=== PATIENT | male | born 1980 | race Caucasian/White ===

== ENCOUNTER 2017-04-19 17:25 | Inpatient (IN) ==
--- NOTE | 2017-04-19 17:59 | ED.PDOC ---
General ED Provider: Dr. OSMAR IRZO Chief Complaint: Abdominal Pain Stated Complaint: Nausea-vomiting and diarrhea. Onset earlier today. Awakened with illness. Ate pasta and duyen sauce last night. 5 episodes diarrhea and several episodes of vomiting. Severe cramping in abdomen Time Seen by Physician: 17:30 Mode of Arrival: Walk-In Information Source: Patient Exam Limitations: No limitations Referred to ED by: Other Nursing and Triage Documentation Reviewed and Agree: Yes Reviewed sepsis parameters & appropriate labs ordered?: Yes System Inflammatory Response Syndrome: Not Applicable Sepsis Protocol: For patient's 13 years and over: Temp is 96.8 and below OR 101 and greater Pulse >90 BPM Resp >20/minute Acutely Altered Mental Status Are patient's symptoms suggestive of a new infection, such as: -Pneumonia -Skin, Soft Tissue -Endocarditis -UTI -Bone, Joint Infection -Implantable Device -Acute Abdominal Infection -Wound Infection -Meningitis -Blood Stream Catheter Infection -Unknown System Inflammatory Response Syndrome: Not Applicable GI Complaint Exam - Vomiting/Diarrhea Complaint/Exam Symptoms Are: Still present Episodes of Vomiting over last 24 Hours: 3 Episodes of Diarrhea Over Last 24 Hours: 5 Initial Severity: Severe Current Severity: Moderate Character of Vomiting: Reports: Bilious Character of Diarrhea: Reports: Watery Aggravating: Reports: Food Alleviating: Reports: None Associated Signs and Symptoms: Reports: Cramping Non-GI Risk Factors: Reports: None Surgical Obstruction Risk Factors: Reports: None Related Surgical History: Reports: None Abdominal Findings: Present: None Kussmaul Respirations Present: No Differential Diagnoses: Dehydration, Viral Gastroenteritis, Bacterial Gastroenteritis Review of Systems - Review Of Systems Constitutional: Reports: No symptoms, Weakness Eyes: Reports: No symptoms Ears, Nose, Mouth, Throat: Reports: No symptoms Respiratory: Reports: No symptoms Cardiac: Reports: No symptoms GI: Reports: No symptoms, Abdominal pain (Cramping), Diarrhea, Nausea, Vomiting : Reports: No symptoms Musculoskeletal: Reports: No symptoms Skin: Reports: No symptoms Neurological: Reports: No symptoms Endocrine: Reports: No symptoms Hematologic/Lymphatic: Reports: No symptoms All Other Systems: Reviewed and Negative Past Medical History - Past Medical History Previously Healthy: Yes Endocrine: Reports: None, DM 2 Cardiovascular: Reports: None, Hypertension Respiratory: Reports: None Hematological: Reports: None Gastrointestinal: Reports: None, GERD Genitourinary: Reports: None Neuro/Psych: Reports: None Musculoskeletal: Reports: None, Gout Cancer: Reports: None - Surgical History General Surgical History: Reports: Unknown - Family History Family History: Reports: Unknown - Social History Smoking Status: Never smoker Hx Substance Use: No (Hx meth in past) Alcohol Screening: None Physical Exam - Physical Exam Appearance: Ill-appearing Ill-appearing: Moderate Pain Distress: Moderate Eyes: DWIGHT, EOMI, Conjunctiva clear ENT: Ears normal, Nose normal, Oropharynx normal Neck: Supple Respiratory: Airway patent, Breath sounds clear, Breath sounds equal Cardiovascular: RRR, Pulses normal, No rub, No murmur GI/: Soft, No masses, No Organomegaly, Tender, Bowel sounds hyperactive Musculoskeletal: Normal strength, ROM intact, No edema Skin: Warm, Dry, Normal color Neurological: Sensation intact, Motor intact, Reflexes intact, Alert, Oriented Psychiatric: Affect appropriate, Mood appropriate Physician Notification - Case Discussed Physician Notified: Discussed with Dr Mosley who agrees to admit patient Time of Notification: 19:20 Critical Care Note - Critical Care Note Total Time (mins): 30 Course - Course Hematology/Chemistry: 04/21/17 05:00 04/21/17 05:00 Orders, Labs, Meds: Lab Review 04/19/17 04/19/17 04/19/17 18:16 18:50 18:50 WBC 18.97 H RBC 7.55 H Hgb 21.5 H* Hct 60.0 H MCV 79.5 L MCH 28.5 MCHC 35.8 H RDW Coeff of Alex 14.6 Plt Count 339 Immature Gran % (Auto) 0.4 Neut % (Auto) 83.8 Lymph % (Auto) 9.7 L [place] % (Auto) 5.0 Eos % (Auto) 0.7 Baso % (Auto) 0.4 Immature Gran # (Auto) 0.1 Neut # (Auto) 15.9 H Lymph # (Auto) 1.8 [place] # (Auto) 1.0 Eos # (Auto) 0.1 Baso # (Auto) 0.1 Sodium 135 L Potassium 5.8 H Chloride 99 Carbon Dioxide 23 Anion Gap 18.8 BUN 23 H Creatinine 1.80 H Estimated GFR (MDRD) 43.00 BUN/Creatinine Ratio 12.77 Glucose 215 H Calcium 11.0 H Magnesium 2.0 Total Bilirubin 0.9 AST 21 ALT 44 Alkaline Phosphatase 95 Total Protein 9.7 H Albumin 4.8 Globulin 4.9 Albumin/Globulin Ratio 0.98 Amylase Lipase Influ A Molecular Assay Negative by naat Influ B Molecular Assay Negative by naat 04/19/17 18:50 WBC RBC Hgb Hct MCV MCH MCHC RDW Coeff of Alex Plt Count Immature Gran % (Auto) Neut % (Auto) Lymph % (Auto) [place] % (Auto) Eos % (Auto) Baso % (Auto) Immature Gran # (Auto) Neut # (Auto) Lymph # (Auto) [place] # (Auto) Eos # (Auto) Baso # (Auto) Sodium Potassium Chloride Carbon Dioxide Anion Gap BUN Creatinine Estimated GFR (MDRD) BUN/Creatinine Ratio Glucose Calcium Magnesium Total Bilirubin AST ALT Alkaline Phosphatase Total Protein Albumin Globulin Albumin/Globulin Ratio Amylase 28 Lipase 38 Influ A Molecular Assay Influ B Molecular Assay Orders Category Date Time Status IV [ED IV/MEDIPORT/POWERPORT] .ONCE EMERGENCY 04/19/17 18:02 Active CBC W/ AUTO DIFF Stat LAB 04/19/17 18:50 Completed CMP [COMPREHENSIVE METABOLIC PANEL] Stat LAB 04/19/17 18:50 Completed FLU A & B MOLECULAR [FLU A/B MOLECULAR] Stat LAB 04/19/17 18:16 Completed MAGNESIUM Stat LAB 04/19/17 18:50 Completed 0.9 % Sodium Chloride [Saline Flush] MEDS 04/19/17 18:03 Discontinued 1 syr IVF PRN PRN Famotidine Inj [Pepcid] MEDS 04/19/17 18:06 Discontinued 20 mg IVP ONCE STA Ondansetron HCl/Pf [Zofran 4 mg/2 ml] MEDS 04/19/17 18:05 Discontinued 4 mg IVP ONCE STA Sodium Chloride 0.9% [Sodium Chloride] 1,000 ml MEDS 04/19/17 18:02 Discontinued IV BOLUS ABDOMEN, SERIES FLAT & UPRIGHT Stat RADS 04/19/17 18:03 Completed CHEST, 2 VIEWS PA & LAT Stat RADS 04/19/17 18:[address] ABDOMEN/PELVIS WO CONTRAST Stat RADS 04/19/17 19:09 Completed Medications Discontinued Medications Generic Name Dose Route Start Last Admin Trade Name Freq PRN Reason Stop Dose Admin Famotidine 20 mg 04/19/17 18:06 04/19/17 18:38 Pepcid IVP 04/19/17 18:07 20 mg ONCE STA Administration Sodium Chloride 1,000 mls @ 1,000 mls/hr 04/19/17 18:02 04/19/17 18:36 Sodium Chloride IV 04/19/17 19:01 1,000 mls/hr BOLUS STA Administration Sodium Chloride 1,000 mls @ 125 mls/hr 04/19/17 19:30 04/20/17 12:00 Sodium Chloride IV Not Given .Q8H MAC Ondansetron HCl 4 mg 04/19/17 18:05 04/19/17 18:36 Zofran 4 Mg/2 Ml IVP 04/19/17 18:06 4 mg ONCE STA Administration Ondansetron HCl 4 mg 04/19/17 20:19 Zofran 4 Mg/2 Ml IVP Q6H PRN Nausea / Vomiting Sodium Chloride 1 syr 04/19/17 18:03 04/19/17 18:42 Saline Flush IVF 1 syr PRN PRN Administration To flush IV Vital Signs: Temp Pulse Resp BP Pulse Ox 04/19/17 17:26 97.0 F L 123 H 20 131/90 95 Departure - Departure Time of Disposition: 19:00 (DISCUSSED WITH DR MOSLEY WHO AGREES TO ADMIT AND ACCEPTS PATIENT. ) Disposition: ADMITTED INPATIENT Discharge Problem: Acute gastroenteritis, Dehydration, Vomiting and diarrhea Condition: Good Pt referred to PMD for follow-up: Yes (Dr Mosley) [facility] verified?: No Allergies/Adverse Reactions: Allergies No Known Allergies Allergy (Verified 04/19/17 17:33) Home Medications: Ambulatory Orders 1 [No Reported Medications] 04/19/17 Transfer Form Completed: No (N/I) Disposition Discussed With: Patient Additional Information: 1900 hrs Discussed case with attending Dr Mosley who agrees to accepting patient and management through admission.
[2017-04-19] MEDS ORDERED: SODIUM CHLORIDE 1,000 ML IV STA (18:02)
[2017-04-19] MEDS ORDERED: ZOFRAN 4 MG/2 ML IVP STA (18:05)
[2017-04-19] MEDS ORDERED: PEPCID IVP STA (18:06)
--- NOTE | 2017-04-19 18:41 | DI ---
EXAM: PA and lateral views of the chest. HISTORY: Abdominal pain. FINDINGS: The bones are unremarkable. The cardiac silhouette and pulmonary vasculature are within no rmal limits. The costophrenic angles are clear. No infiltrate or consolidation. There are calcified granulomas. Impression: No acute cardiopulmonary disease.
--- NOTE | 2017-04-19 18:49 | DI ---
EXAM: Upright supine views of the abdomen. HISTORY: Abdominal pain. FINDINGS: Chest x-ray of 04/19/2017 reviewed in conjunction with this exam. There are multiple loops of air-filled small bowel measuring up to 3.7 cm in diameter. There are multiple small air-fluid lev els on the upright view. No evidence of free intraperitoneal air. There are surgical clips in the rig ht upper quadrant consistent with cholecystectomy. There is a surgical clip in the left pelvis. The bones are unremarkable. Impression: Small bowel ileus versus small bowel obstruction as described. Recommend CT for further e valuation if clinically indicated. Cholecystectomy.
[2017-04-19] MEDS: SODIUM CHLORIDE 1,000 ML IV SCH (19:32)
--- NOTE | 2017-04-19 20:05 | CT ---
EXAM: CT of the abdomen and pelvis without contrast. HISTORY: Ileus. PROCEDURE: Contiguous axial CT images of the abdomen and pelvis without contrast with coronal and sa gittal reformats. FINDINGS: There is motion artifact which limits the exam. The liver is normal in appearance. The gal lbladder is surgically absent. The pancreas, spleen and adrenal glands are normal in appearance. The re are nonobstructive calcifications in both kidneys measuring up to 3 mm. The abdominal aorta is nor mal in appearance. The appendix is normal in appearance. There are a few loops of air and fluid-fill ed small bowel measuring up to 2.8 cm in diameter. No bowel obstruction. No free fluid or free air i n the abdomen or pelvis. The bladder and lower pelvis are incompletely visualized secondary to termin ation of image acquisition which limits the exam. The bones and soft tissues are unremarkable. Impression: Nonspecific nonobstructive bowel gas pattern as described. Cholecystectomy.
[2017-04-19] MEDS ORDERED: ZOFRAN 4 MG/2 ML IVP PRN (20:19)
[2017-04-19 23:35] VITALS: BMI 34.2
[2017-04-20] MEDS: SODIUM CHLORIDE 1,000 ML IV SCH ×2 (03:07→12:00)
[2017-04-21 10:52] VITALS: BP 134/86; TEMP 98.5
--- NOTE | 2017-05-17 11:13 | HP ---
DATE OF SERVICE: 04/19/17 CHIEF COMPLAINT: Nausea and vomiting. HISTORY OF PRESENT ILLNESS: This is a 36 year old male who came to the emergency room and seen by Dr. Stinson in the ER. He came because of abdominal pain that started early in the morning with belching. He states it tasted bad. Abdominal pain that felt like gas and then developed diarrhea, which was profuse. The whole day he had diarrhea of almost 10 stools, watery. He was nauseous and vomited once, nonbloody vomiting. He came to the emergency and his temperature was 97.0. KUB showed the ileus. White count was 18,000. Hemoglobin was 21, BUN 23, creatinine 1.80, glucose 135, potassium 5.8. He was given a fluid bolus and the patient was admitted to the hospital for IV hydration and for acute renal failure. REVIEW OF SYSTEMS: CONSTITUTIONAL: No fever, no chills. Weakness, tiredness. HEENT: Normal. ENDOCRINE: No weight gain; no weight loss. CVS: No chest pain. No PND, no orthopnea. No shortness of breath. No PND, no orthopnea. RESPIRATORY: No cough, no congestion. No hemoptysis. GI: Nausea and vomiting. Diarrhea. Abdominal pain. No melena. : No hematuria. No polyuria. MUSCULOSKELETAL: No joint swelling. PSYCHIATRIC: Not anxious. No depression. No suicidal thoughts. No homicidal thoughts. SKIN: Intact, no open lesions. PAST MEDICAL HISTORY: Used to take Meth in the past, but none at this time. PAST SURGICAL HISTORY: None. PERSONAL HISTORY: Does smoke, no alcohol and no drugs. FAMILY HISTORY: Not significant. MEDICATIONS: None ALLERGIES: No known drug allergies. PHYSICAL EXAMINATION: V/S: Blood pressure 131/90, respiratory rate 20, heart rate 123, temperature 97.0, saturation 95. GENERAL: Sick looking male lying in the bed and not in any distress. HEENT: Atraumatic, normocephalic. No scleral icterus. Pallor positive. Mucosa dry. NECK: Supple. No JVD, no bruit. No lymphadenopathy. No thyromegaly. HEART: S1, S2 normal. No murmur. Sinus tachy. No cyanosis or clubbing. No ascites. LUNGS: Decreased and clear. No rales or rhonchi. ABDOMEN: Soft with discomfort all over. Bowel sounds are hyperactive. No CVA tenderness. No rigidity or guarding. EXTREMITIES: No pedal edema. No cyanosis or clubbing MUSCULOSKELETAL: Normal joints, no swelling. NEUROLOGIC: The patient is awake, alert and oriented times four. SKIN: Intact and dry; no open lesions. He has some tattoos. LYMPHATIC: No lymph nodes palpable. LABS: Sodium 135, potassium 5.8, chloride 99, bicarb 23, BUN 23, creatinine 1.80, glucose 215, white count 18.97, hemoglobin 21.5, hematocrit 60, platelet count 339. Serology with flu negative. CT scan of the abdomen and pelvis showed the nonspecific nonobstructive bowel gas pattern. ASSESSMENT: 1. ACUTE GASTROENTERITIS WITH DIARRHEA 2. ACUTE RENAL FAILURE 3. HYPERKALEMIA 4. LEUKOCYTOSIS FROM DEHYDRATION PLAN: 1. Admit the patient to the regular floor. 2. IV fluids at 125 ml per hour. 3. Zofran for nausea. 4. Dose of Pepcid was given in the emergency room. TIME SPENT: MORE THAN 70 minutes MTDD
--- NOTE | 2017-05-17 11:33 | PN ---
DATE OF SERVICE: 04/20/17 SUBJECTIVE: The patient was admitted yesterday with acute renal failure, leukocytosis, hyperkalemia from the severe diarrhea. He had ten episodes. Since his admission no more diarrhea, no abdominal pain, nausea or vomiting. Still feeling weak, tired. REVIEW OF SYSTEMS: CONSTITUTIONAL: No fever, no chills. Weak and tired. HEENT: Normal. ENDOCRINE: No weight gain, no weight loss. CVS: No angina symptoms. No CHF symptoms. No palpitations. No atypical chest pain for CAD. No shortness of breath. No PND, no orthopnea. RESPIRATORY: No cough, no hemoptysis. GI: No nausea, no vomiting. No abdominal pain. : No hematuria. No polyuria. MUSCULOSKELETAL: No joint swelling. PSYCHIATRIC: Not anxious. No depression. No suicidal thoughts. No homicidal thoughts. SKIN: Intact. No rash. PHYSICAL EXAMINATION: V/S: Blood pressure 132/82, respiratory rate 16, heart rate 92, temperature 98.4 , saturation 98. HEENT: Normocephalic, atraumatic. Mucosa dry. Pallor positive. No icterus. NECK: Supple. No JVD, no carotid bruit. No lymphadenopathy. LUNGS: Decreased and clear. No rales or rhonchi. HEART: S1, S2 normal. No S3. No murmur, gallop or regurgitation. ABDOMEN: Soft, nontender. Sluggish bowel movements. No rigidity. No rebound or guarding. No CVA tenderness. EXTREMITIES: No pedal edema. No clubbing or cyanosis MUSCULOSKELETAL: No joint swelling. NEUROLOGIC: Awake, alert, oriented times three. No focal deficit. LYMPHATIC: No lymph nodes palpable. SKIN: Intact. Multiple tattoos on the skin. LABS: White count 11.22, hemoglobin 17.2, hematocrit 47.9, platelet count 257, sodium 136, which is from 135. Potassium 4.6 from 5.8. Chloride 101, bicarb 25 , BUN 18, creatinine 1.38. ASSESSMENT: 1. ACUTE RENAL FAILURE 2. HYPERKALEMIA 3. LEUKOCYTOSIS 4. SEVERE GASTROENTERITIS PLAN: 1. Continue the IV fluids. 2. Zofran. 3. Regular diet. 4. Out of bed to chair. 5. Activity as tolerated. 6. Continue the Pepcid. TIME SPENT: More than 35 minutes MTDD
--- NOTE | 2017-05-17 11:49 | DS ---
DATE OF SERVICE: 04/21/17 FINAL DIAGNOSIS: 1. ACUTE GASTROENTERITIS 2. SEVERE DEHYDRATION 3. ACUTE RENAL FAILURE, WHICH IS RESOLVED 4. HYPERKALEMIA 5.8, WHICH IS RESOLVED 5. LEUKOCYTOSIS 18,000, WHICH IS BETTER 6. HISTORY OF TONSILLECTOMY, CHOLECYSTECTOMY 7. HISTORY OF SUBSTANCE USE IN THE PAST PLAN: 1. Discharge the patient home. 2. Soft diet to regular diet. 3. Follow up in the [facility] within 5-7 days. 4. Home medications: None. DISEASE SPECIFIC EDUCATION: About dehydration, acute gastroenteritis, food hygiene was discussed and he verbalized understanding. HOSPITAL COURSE: Sharif Oquendo, a 36 year old young man with no apparent medical problems, came to the emergency room after having almost 10 loose stools in one day, within four to five hours. Nausea, vomiting, abdominal pain , cramping all over the body. He was seen in the emergency room by Dr. Stinson. White count was 18,000. Hemoglobin 21.5, sodium 135, potassium 5.8, chloride 99, bicarb 23, BUN 23, creatinine 1.80. Serology negative. Cardiac enzymes negative. KUB showed the nonspecific bowel gas pattern. CT of the abdomen did not show any acute bowel obstruction. At that time, the patient was admitted to the hospital and started on the IV fluids. Nausea medication was given. By the next day, the patient was a lot better. No more nausea. Sodium was better. Potassium 5.8 to 4.6, BUN and creatinine has improved. White count came down from 18,000 to 11,000. Continue the IV fluids and started the patient back on his diet, which he was able to tolerate and did not have any complications. He was up and about walking. No more diarrhea. No more nausea. White count became 10.78. Potassium is 4.4. Creatinine was still slightly high at 1.17, which was discussed with the patient. Informed that he should be having a follow up with the [facility] and we will draw the blood work and take it from there. TIME SPENT: MORE THAN 65 MINUTES MTDD
== END 2017-04-21 13:15 | disposition home or self-care (01) | DRG 392 ==
LOC: ED 17:25 → MEDSURG B 19:22
PROVIDERS: ADMIT Emergency Medicine; ATTEND Emergency Medicine
DX: K52.9 Noninfective gastroenteritis and colitis, unspecified (principal); N17.9 Acute kidney failure, unspecified; E86.0 Dehydration; E87.5 Hyperkalemia; D72.829 Elevated white blood cell count, unspecified; F15.11 Other stimulant abuse, in remission
CPT/HCPCS: 36415; 80053; 82150; 82550; 83690; 83735; 84484; 85025; 87502; 93005; 93010; 96360; 96375; 99285

== ENCOUNTER 2018-03-21 07:24 | Emergency (ER) ==
[2018-03-21 07:34] VITALS: BP 132/96; TEMP 97.9; BMI 33.5
--- NOTE | 2018-03-21 07:57 | ED.PDOC ---
General ED Provider: Dr. OSMAR RIZO Chief Complaint: Abdominal Pain Stated Complaint: Abdominal Bloating. States he awakened with midepigastic abdominal pain with bloating and cramping. States had similar episode 1 month ago lasting 24 hrs. Came to ER during which time he became nauseated and had emesis upon arrival to ER described and "Red chunky Liquid". State last BM occurred last evening, not firm. States when he burps it taste chalky;. Hx GERD Time Seen by Physician: 07:40 Mode of Arrival: Walk-In Information Source: Patient Exam Limitations: No limitations Nursing and Triage Documentation Reviewed and Agree: Yes Does patient meet sepsis criteria?: No System Inflammatory Response Syndrome: Not Applicable Sepsis Protocol: For patient's 13 years and over: Temp is 96.8 and below OR 101 and greater Pulse >90 BPM Resp >20/minute Acutely Altered Mental Status Are patient's symptoms suggestive of a new infection, such as: -Pneumonia -Skin, Soft Tissue -Endocarditis -UTI -Bone, Joint Infection -Implantable Device -Acute Abdominal Infection -Wound Infection -Meningitis -Blood Stream Catheter Infection -Unknown GI Complaint Exam - Abdominal Pain Complaint/Exam Onset: Sudden Duration: 2 hr Symptoms Are: Still present Timing: Constant Initial Severity: Moderate Current Severity: Moderate Location of Pain: Diffuse, RUQ, LUQ, LLQ Radiates To: Reports: LLQ, RLQ Character: Reports: Sharp, Cramping, Colicky Aggravating: Reports: Movement Alleviating: Reports: Rest Associated Signs and Symptoms: Reports: Diaphoresis, Dizziness, Nausea, Vomiting Related History: Reports: Similar episode AAA Risk Factors: Reports: None Cardiac Risk Factors: Reports: None Testicular Torsion Risk Factors: Reports: None Surgical Obstruction Risk Factors: Reports: Colicky abdominal pain Related Surgical History: Reports: Cholecystectomy Abdominal Findings: Present: Abdominal distention, Rebound tenderness Differential Diagnoses: Bowel Obstruction, Diverticulitis, Gastroenteritis, Renal Colic Review of Systems - Review Of Systems Constitutional: Reports: No symptoms Eyes: Reports: No symptoms Ears, Nose, Mouth, Throat: Reports: No symptoms Respiratory: Reports: No symptoms Cardiac: Reports: No symptoms GI: Reports: Abdomen distended, Abdominal pain, Nausea, Vomiting : Reports: No symptoms Musculoskeletal: Reports: No symptoms Skin: Reports: No symptoms Neurological: Reports: No symptoms Endocrine: Reports: No symptoms Hematologic/Lymphatic: Reports: No symptoms All Other Systems: Reviewed and Negative Past Medical History - Past Medical History Previously Healthy: Yes Endocrine: Reports: None, DM 2 (For 2 years; hasn't been back to Physician since initial diagnosis, No treatment) Cardiovascular: Reports: None, Hypertension Respiratory: Reports: None Hematological: Reports: None Gastrointestinal: Reports: None, GERD, Other (Gastroenteritis; chronic diarrhea) Genitourinary: Reports: None Neuro/Psych: Reports: None Musculoskeletal: Reports: None, Gout Cancer: Reports: None - Surgical History General Surgical History: Reports: Cholecystectomy ([facility]), Unknown - Family History Family History: Reports: Unknown - Social History Smoking Status: Never smoker Hx Substance Use: No Alcohol Screening: None Physical Exam - Physical Exam Appearance: Ill-appearing, Obese Ill-appearing: Mild Pain Distress: Moderate Eyes: DWIGHT, EOMI, Conjunctiva clear ENT: Ears normal, Nose normal, Oropharynx normal Neck: Supple (No appreciable lymphadenopathy, soft and supple) Respiratory: Airway patent, Breath sounds clear, Breath sounds equal, Respirations nonlabored Cardiovascular: RRR, Pulses normal, No rub, No murmur GI/: Soft, No masses, No Organomegaly, Tender, Bowel sounds hypoactive ( Abdomen is tympanic to percussion ) Musculoskeletal: Normal strength, ROM intact, No edema, No calf tenderness Skin: Warm, Dry, Normal color Neurological: Sensation intact, Motor intact, Reflexes intact, Cranial nerves intact, Alert, Oriented Psychiatric: Affect appropriate, Mood appropriate Interpretation - Radiology Interpretation Radiology Interpretation By: ED Physician Radiology Results: Positive Exam Interpreted: Other (Abdomen/acute Small Bowel obstruction) Critical Care Note - Critical Care Note Total Time (mins): 60 Course - Course Hematology/Chemistry: 03/21/18 08:00 03/21/18 08:00 Orders, Labs, Meds: Lab Review 03/21/18 03/21/18 03/21/18 08:00 08:00 08:00 WBC 15.55 H RBC 6.44 H Hgb 18.3 H Hct 51.1 MCV 79.3 L MCH 28.4 MCHC 35.8 H RDW Coeff of Alex 12.1 Plt Count 297 Immature Gran % (Auto) 0.3 Neut % (Auto) 75.7 Lymph % (Auto) 15.9 [place] % (Auto) 6.8 Eos % (Auto) 1.0 Baso % (Auto) 0.3 Immature Gran # (Auto) 0.0 Neut # (Auto) 11.8 H Lymph # (Auto) 2.5 [place] # (Auto) 1.1 Eos # (Auto) 0.2 Baso # (Auto) 0.1 Sodium 138.7 Potassium 4.58 Chloride 98.9 Carbon Dioxide 27.6 Anion Gap 16.78 BUN 17.7 Creatinine 1.00 Estimated GFR (MDRD) 85.00 BUN/Creatinine Ratio 17.70 Glucose 261.4 H Uric Acid 8.94 H Calcium 10.16 Total Bilirubin 0.62 AST 24.0 ALT 32.1 Alkaline Phosphatase 72.1 Total Protein 8.80 H Albumin 4.86 Globulin 3.94 Albumin/Globulin Ratio 1.23 Amylase 59.3 Lipase 97.9 Gastric Fluid pH Gastric Occult Blood 03/21/18 09:50 WBC RBC Hgb Hct MCV MCH MCHC RDW Coeff of Alex Plt Count Immature Gran % (Auto) Neut % (Auto) Lymph % (Auto) [place] % (Auto) Eos % (Auto) Baso % (Auto) Immature Gran # (Auto) Neut # (Auto) Lymph # (Auto) [place] # (Auto) Eos # (Auto) Baso # (Auto) Sodium Potassium Chloride Carbon Dioxide Anion Gap BUN Creatinine Estimated GFR (MDRD) BUN/Creatinine Ratio Glucose Uric Acid Calcium Total Bilirubin AST ALT Alkaline Phosphatase Total Protein Albumin Globulin Albumin/Globulin Ratio Amylase Lipase Gastric Fluid pH Gastric Occult Blood Positive Orders Category Date Time Status IV [ED IV/MEDIPORT/POWERPORT] .ONCE EMERGENCY 03/21/18 08:23 Active AMYLASE Stat LAB 03/21/18 08:00 Completed CBC W/ AUTO DIFF Stat LAB 03/21/18 08:00 Completed CMP [COMPREHENSIVE METABOLIC PANEL] Stat LAB 03/21/18 08:00 Completed GASTRIC OCCULT BLOOD AND PH Stat LAB 03/21/18 09:50 Completed LIPASE Stat LAB 03/21/18 08:00 Completed UA [URINALYSIS C & S IF INDICATED] Stat LAB 03/21/18 07:55 Uncollected URIC ACID Stat LAB 03/21/18 08:00 Completed URINE DRUG SCREEN (RAPID FOR ED) [DRUG SCREEN, URINE, LAB 03/21/18 07:56 Uncollected RAPID] Stat 0.9 % Sodium Chloride [Saline Flush] MEDS 03/21/18 08:22 Active 1 syr IVF PRN PRN Famotidine Inj [Pepcid] MEDS 03/21/18 08:45 Discontinued 20 mg IVP ONCE STA Hydromorphone HCl [Dilaudid 1 mg/ml Syringe] MEDS 03/21/18 08:45 Discontinued 1 mg IVP ONCE STA Lidocaine [Lidocaine Ointment 5%] MEDS 03/21/18 09:00 Discontinued 1 applic TP .STK-MED ONE Lorazepam Inj [Ativan] MEDS 03/21/18 09:37 Discontinued 1 mg IVP ONCE STA Ondansetron HCl/Pf [Zofran 4 mg/2 ml] MEDS 03/21/18 08:45 Discontinued 4 mg IVP ONCE STA Sodium Chloride 0.9% [Sodium Chloride] 1,000 ml MEDS 03/21/18 08:23 Discontinued IV BOLUS CHEST, 1V AP ONLY Stat RADS 03/21/18 09:[address] ABDOMEN/PELVIS WO CONTRAST Stat RADS 03/21/18 08:22 Completed KUB Stat RADS 03/21/18 07:53 Completed Medications Generic Name Dose Route Start Last Admin Trade Name Freq PRN Reason Stop Dose Admin Sodium Chloride 1 syr 03/21/18 08:22 03/21/18 09:30 Saline Flush IVF 1 syr PRN PRN Administration To flush IV Discontinued Medications Generic Name Dose Route Start Last Admin Trade Name Freq PRN Reason Stop Dose Admin Famotidine 20 mg 03/21/18 08:45 03/21/18 09:25 Pepcid IVP 03/21/18 08:46 20 mg ONCE STA Administration Hydromorphone HCl 1 mg 03/21/18 08:45 03/21/18 09:30 Dilaudid 1 Mg/Ml Syringe IVP 03/21/18 08:46 1 mg ONCE STA Administration Sodium Chloride 1,000 mls @ 500 mls/hr 03/21/18 08:23 03/21/18 09:10 Sodium Chloride IV 03/21/18 10:22 500 mls/hr BOLUS STA Administration Lorazepam 1 mg 03/21/18 09:37 Ativan IVP 03/21/18 09:38 ONCE STA Ondansetron HCl 4 mg 03/21/18 08:45 03/21/18 09:23 Zofran 4 Mg/2 Ml IVP 03/21/18 08:46 4 mg ONCE STA Administration Vital Signs: Temp Pulse Resp BP Pulse Ox 03/21/18 07:25 97.9 F 100 H 20 132/96 H 97 Departure - Departure Time of Disposition: 11:15 Disposition: TSF SHORT-TRM HOSP Discharge Problem: Small bowel obstruction, UGI bleed, Diabetes mellitus Condition: Stable Pt referred to PMD for follow-up: Yes (PCP) IPMP verified?: No Additional Instructions: Advised patient of intent to transfer and accepting physician and necessity to see pcp after discharge Importance of compliance with a diabetic diet and treatment Allergies/Adverse Reactions: Allergies No Known Allergies Allergy (Verified 03/21/18 07:34) Home Medications: Ambulatory Orders 1 [No Reported Medications] 04/19/17 Disposition Discussed With: Patient, Family Additional Comments Additional Comments: 0835: Reviewed abdominal xray-small bowel obstruction. 0845: Spoke with Dr Horton radiology -small bowel obstruction. 0850: REviewed finding with patient explaining findings and anticipated treatment. Advised will probalbly need to transfer to tertiary hospital for higher level of care. 1010 Jain called for transfer=Surgical consult. 1110: Dr San returned call. Accepted patient/confirmed only past surgery lap cholecystectomy. Transfer process initiated.
[2018-03-21] MEDS ORDERED: SODIUM CHLORIDE 1,000 ML IV STA (08:23)
[2018-03-21] MEDS ORDERED: ZOFRAN 4 MG/2 ML IVP STA (08:45)
[2018-03-21] MEDS ORDERED: DILAUDID 1 MG/ML SYRINGE IVP STA (08:45)
[2018-03-21] MEDS ORDERED: PEPCID IVP STA (08:45)
[2018-03-21] MEDS ORDERED: LIDOCAINE JELLY 2% MUCOUSMEMB STA (09:00)
[2018-03-21] MEDS: LIDOCAINE OINTMENT 5% TP ONE (09:13)
[2018-03-21] MEDS ORDERED: ATIVAN IVP STA (09:37)
--- NOTE | 2018-03-21 10:52 | CT ---
EXAM: CT ABDOMEN AND PELVIS HISTORY: Abdominal pain and bloating TECHNIQUE: CT abdomen and pelvis without intravenous contrast. Images were reconstructed using 5 mm section thickness. Reformations were prepared. COMPARISON: 04/19/2017 FINDINGS: Diagnostic limitations may exist without including contrast enhanced images. The liver and spleen ap pear normal. Gallbladder is absent. Pancreas, adrenal glands, kidneys and abdominal aorta appear no rmal. The stomach is distended with fluid and food product. There are multiple loops of distended small norma wel measuring up to 4 cm in diameter with scattered air-fluid levels. The distal small bowel is deco mpressed. Transition appears to be in the mid abdomen. Normal appendix. Colon is within normal cai its. Urinary bladder and prostate are unremarkable. There is no ascites. No ventral abdominal wall hernia. The bones are within normal limits and the lung bases are clear. No pneumoperitoneum. IMPRESSION: 1. Small bowel obstruction. Surgical consultation is recommended.
--- NOTE | 2018-03-21 10:52 | DI ---
EXAM: CHEST FRONTAL VIEW HISTORY: Nasogastric tube evaluation. COMPARISON: 04/19/2017 FINDINGS: Nasogastric tube ends over the left upper abdominal quadrant an estimated 13 cm from the general level of the gastroesophageal junction. Heart size and mediastinum remain within normal cai its. No acute infiltrates are seen. No vascular congestion. There is no consolidation, visible ple ural fluid or pneumothorax. Bones reveal no acute fracture. IMPRESSION: No acute cardiopulmonary process.
--- NOTE | 2018-03-21 10:52 | DI ---
EXAM: KUB. History: Abdominal bloating. Findings: Multiple air distended loops of small bowel. No gross free intraperitoneal air. Status p ost cholecystectomy. No acute osseous abnormalities. Impression: Small bowel obstruction. Critical results communicated to Dr. Stinson at 8:36 a.m. 03/21/2018
[2018-03-21] MEDS ORDERED: SODIUM CHLORIDE 1,000 ML IV ONE (11:14)
[2018-03-25] MEDS: LIDOCAINE OINTMENT 5% TP ONE (07:51)
== END 2018-03-21 11:45 | disposition short-term general hospital (02) ==
LOC: ED 07:24
DX: K56.609 Unspecified intestinal obstruction, unspecified as to partial versus complete obstruction (principal); K92.2 Gastrointestinal hemorrhage, unspecified; E11.9 Type 2 diabetes mellitus without complications; R10.9 Unspecified abdominal pain; I10 Essential (primary) hypertension
CPT/HCPCS: 36415; 80053; 82150; 82271; 83690; 84550; 85025; 93005; 93010; 96361; 96374; 96375; 99285

== ENCOUNTER 2018-03-21 11:43 | Outpatient (CLI) ==
[2018-03-21 07:34] VITALS: BMI 33.5
== END 2018-03-21 11:44 | disposition home or self-care (01) ==
LOC: AMBL 11:43
PROVIDERS: ATTEND Emergency Medicine
DX: K56.609 Unspecified intestinal obstruction, unspecified as to partial versus complete obstruction (principal)